=== PATIENT | female | born 1965 | race Caucasian/White ===

== ENCOUNTER 2018-03-30 05:37 | Inpatient (IN) | payer BC ==
[2018-03-30] MEDS: TRANEXAMIC ACID 1,000 MG in DEXTROSE 5% 100 ML IVPB (06:00)
[2018-03-30] MEDS ORDERED: BUPIVACAINE 0.5% (SDV) 30 ML, morphine SULFATE (PF) 8 MG, EPINEPHrine 0.3 MG, KETOROLAC... IRR (06:00)
[2018-03-30] MEDS: SOD CHLORIDE 0.9% 100 ML, TRANEXAMIC ACID 3,000 MG IRR (06:00)
[2018-03-30] MEDS: DEXAMETHASONE 1 MG TAB PO (06:22)
[2018-03-30] MEDS: GABAPENTIN 300 MG CAP PO ×2 (06:22→20:49)
[2018-03-30] MEDS: VANCOMYCIN 1 GM (PMX) 250 ML IVPB (06:23)
[2018-03-30] MEDS: traMADol 50 MG TAB PO (06:23)
[2018-03-30] MEDS: LACTATED RINGER'S 1,000 ML IV* (06:24)
[2018-03-30] MEDS ORDERED: PROPOFOL 20 ML (06:56)
[2018-03-30] MEDS ORDERED: LIDOCAINE 2% (SDV) 5 ML INJ (06:56)
[2018-03-30] MEDS ORDERED: BUPIVACAINE 0.75%/DEXT (SPINAL) 2 ML INJ (06:57)
[2018-03-30] MEDS ORDERED: METOCLOPRAMIDE 10 MG INJ (06:57)
[2018-03-30] MEDS ORDERED: morphine SULFATE/PF (10 MG/10 ML) INJ (06:57)
[2018-03-30] MEDS ORDERED: ONDANSETRON 4 MG INJ (06:57)
[2018-03-30] MEDS ORDERED: EPHEDrine SULFATE 50 MG/5 ML SYG (07:00)
[2018-03-30] MEDS: THROMBIN 5000 UNIT VIAL (07:01)
[2018-03-30] MEDS: POLYMYXIN/BACITRACIN 1L IRRIG (07:01)
[2018-03-30] MEDS: CA CHLORIDE 10% 10 ML SYRINGE (07:01)
[2018-03-30] MEDS ORDERED: MIDAZOLAM 1 MG/ML 2 ML INJ (07:09)
[2018-03-30] MEDS ORDERED: ZOLPIDEM 5 MG TAB PO (09:30)
[2018-03-30] MEDS ORDERED: MAGNESIUM HYDROXIDE 30ML CUP PO (09:30)
[2018-03-30] MEDS ORDERED: ACETAMINOPHEN 500 MG TAB PO (09:30)
[2018-03-30] MEDS ORDERED: OXYCODONE/ACETAMINOPHEN (5/325) TAB PO ×2 (09:30)
[2018-03-30] MEDS ORDERED: DIPHENHYDRAMINE 50 MG INJ IV (10:00)
[2018-03-30] MEDS ORDERED: ONDANSETRON 4 MG INJ IV (10:00)
[2018-03-30] MEDS ORDERED: HYDROmorphONE 0.5 MG/0.5 ML SYG IV ×2 (10:00)
[2018-03-30] MEDS ORDERED: NALOXONE (0.4 MG/ML) INJ IV (10:00)
[2018-03-30 10:01] LABS: ADD MAN DIFF? NO
[2018-03-30] MEDS: TRANEXAMIC ACID 1,000 MG in DEXTROSE 5% 100 ML IV (10:13)
[2018-03-30] MEDS: DIPHENHYDRAMINE 50 MG INJ IV (10:14)
[2018-03-30 10:20] LABS: BASOPHILS % 0.4 % (0.0-2.0); EOSINOPHILS # 0.1 10^3/ul (0.0-0.5); EOSINOPHILS % 0.5 % (0.0-7.0); HEMATOCRIT 42.1 % (37.0-47.0); HEMOGLOBIN 13.7 g/dl (12.0-16.0); LYMPHOCYTES # 1.8 10^3/ul (0.8-2.9); LYMPHOCYTES % 16.7 % (15.0-51.0); MEAN CORPUSCULAR HEMOGLOBIN 28.5 pg (29.0-33.0); MEAN CORPUSCULAR HGB CONC 32.5 g/dl (32.0-37.0); MEAN CORPUSCULAR VOLUME 87.7 fl (82.0-101.0); MONOCYTE # 0.6 10^3/ul (0.3-0.9); MONOCYTES % 5.8 % (0.0-11.0); NEUTROPHILS % 75.2 % (39.0-77.0); PLATELET COUNT 272 10^3/UL (140-415); RED CELL DISTRIBUTION WIDTH 13.7 % (11.5-14.5)
[2018-03-30 10:20] LABS: WHITE BLOOD COUNT 10.6 10^3/ul (4.8-10.8)
[2018-03-30] MEDS: ONDANSETRON 4 MG INJ IV ×2 (11:09→18:43)
[2018-03-30] MEDS: DEXAMETHASONE 2 MG TAB PO ×3 (12:15→23:50)
[2018-03-30] MEDS: LACTATED RINGER'S 1,000 ML IV ×2 (12:16→19:41)
[2018-03-30] MEDS: VANCOMYCIN 500MG/NS (PMX) 100 ML IVPB (18:42)
[2018-03-30] MEDS: SENNA/DOCUSATE NA (8.6MG/50MG) TAB PO (20:49)
[2018-03-30] MEDS: morphine 2 MG INJ IV (23:51)
[2018-03-31] MEDS: KETOROLAC 15 MG INJ IV (03:02)
[2018-03-31 04:56] LABS: ADD MAN DIFF? NO
[2018-03-31 05:04] LABS: WHITE BLOOD COUNT 13.5 10^3/ul (4.8-10.8)
[2018-03-31 05:04] LABS: BASOPHILS % 0.2 % (0.0-2.0); EOSINOPHILS # 0.1 10^3/ul (0.0-0.5); EOSINOPHILS % 0.4 % (0.0-7.0); HEMATOCRIT 36.5 % (37.0-47.0); LYMPHOCYTES # 1.2 10^3/ul (0.8-2.9); MEAN CORPUSCULAR HEMOGLOBIN 28.4 pg (29.0-33.0); MEAN CORPUSCULAR HGB CONC 32.9 g/dl (32.0-37.0); MEAN CORPUSCULAR VOLUME 86.5 fl (82.0-101.0); MEAN PLATELET VOLUME 10.4 fl (7.4-10.4); MONOCYTE # 1.1 10^3/ul (0.3-0.9); MONOCYTES % 8.2 % (0.0-11.0); NEUTROPHIL # 11.1 10^3/ul (1.6-7.5); NEUTROPHILS % 81.8 % (39.0-77.0); PLATELET COUNT 259 10^3/UL (140-415); RED BLOOD COUNT 4.22 10^6/ul (4.20-5.40); RED CELL DISTRIBUTION WIDTH 14.3 % (11.5-14.5)
[2018-03-31] MEDS: DEXAMETHASONE 2 MG TAB PO (05:26)
[2018-03-31] MEDS: VANCOMYCIN 500MG/NS (PMX) 100 ML IVPB (05:27)
[2018-03-31] MEDS: morphine 2 MG INJ IV (05:27)
[2018-03-31] MEDS: LACTATED RINGER'S 1,000 ML IV (05:27)
[2018-03-31] MEDS: ASPIRIN 81 MG TAB PO (08:18)
[2018-03-31] MEDS: SENNA/DOCUSATE NA (8.6MG/50MG) TAB PO (08:18)
[2018-03-31] MEDS: HYDROCODONE/APAP (10/325) TAB PO ×2 (08:19→12:21)
== END 2018-03-31 15:30 | disposition home or self-care (01) | DRG 470 ==
LOC: REC 05:37 → MS1 10:40
PROVIDERS: Orthopaedic Surgery
PROC: 0SR904A Replacement of Right Hip Joint with Ceramic on Polyethylene Synthetic Substitute, Uncemented, Open Approach (ICD-10-PCS; principal; 2018-03-30 07:00)
DX: M16.11 Unilateral primary osteoarthritis, right hip (principal); E66.01 Morbid (severe) obesity due to excess calories; Z68.39 Body mass index [BMI] 39.0-39.9, adult
CPT/HCPCS: 72170; 73530; 85025; 86999; 87086; 88304; 88311; 97116; 97161; 97530